=== PATIENT | male | born 1950 | race African-American/Black ===

== ENCOUNTER 2016-07-05 13:37 | Inpatient (IN) | payer MEDICARE, OTHER ==
[2016-07-05] VITALS (21 sets, daily range): BP systolic 94–130; BP diastolic 60–80
[~2016-07-05] VITALS: Ht 182.9 cm; Wt 72.6 kg
[2016-07-05] MEDS ORDERED: IV NS 0.9% 500 ML IV ONE (13:46)
[2016-07-05] MEDS ORDERED: LORAZEPAM INJ 2 MG/ML VIAL ONE (13:46)
[2016-07-05] MEDS ORDERED: IV SET PRIMARY 1 EA INFUS.SET MC ONE ×2 (13:46→14:01)
[2016-07-05] MEDS ORDERED: IV NS 0.9% 500 ML BAG IV ONE (14:00)
[2016-07-05] MEDS ORDERED: LORAZEPAM INJ 2 MG/ML VIAL IV ONE (14:00)
[2016-07-05] MEDS ORDERED: IV NS 0.9% 2,000 ML ONE (14:01)
[2016-07-05] MEDS ORDERED: SODIUM BICARBONATE SYR 50 MEQ/50 ML DISP.SYRIN ONE (14:09)
[2016-07-05 14:11] LABS: BASOPHILS # (AUTO) 0.7 /CMM (0.0-0.2); BASOPHILS % (AUTO) 6.1 % (0.0-2.0); DIFF TOTAL % 100 %; EOSINOPHILS % (AUTO) 0.4 % (0.0-6.0); HEMATOCRIT 47 % (39-51); HEMOGLOBIN 15.1 g/dL (13.5-17.5); LYMPHOCYTES # (AUTO) 1.4 /CMM (0.8-4.8); LYMPHOCYTES % (AUTO) 13.3 % (20.0-44.0); MEAN CORPUSCULAR HEMOGLOBIN 30 PG (26.0-33.0); MEAN CORPUSCULAR HGB CONC 32 g/dl (31.0-36.0); MEAN CORPUSCULAR VOLUME 94 fL (80-96); MONOCYTES # (AUTO) 0.5 /CMM (0.1-1.30); MONOCYTES % (AUTO) 5.1 % (2.0-12.0); NEUTROPHILS # (AUTO) 8.1 /CMM (1.8-8.9); NEUTROPHILS % (AUTO) 75.1 % (43.0-81.0); PLATELET COUNT (AUTO) 554 /CMM (150-450); RED BLOOD CELL COUNT(AUTO) 4.99 MIL/uL (4.5-6.0); WHITE BLOOD COUNT (AUTO) 10.7 K/uL (4.3-11.0)
[2016-07-05 14:16] LABS: ANION GAP 27 (5-14); CALCIUM, SERUM 10.3 mg/dL (8.5-10.1); CARBON DIOXIDE 18 mmol/L (21-32); CHLORIDE 101 mmol/L (98-107); CREATININE 2.3 mg/dL (0.6-1.3); GFR 35 mL/min (>60); GLUCOSE 185 mg/dL (74-106); POTASSIUM 5.2 mmol/L (3.5-5.1); SODIUM SERUM 141 mmol/L (136-145); UREA NITROGEN, BLOOD 14 mg/dL (7-18)
[2016-07-05 14:19] LABS: INR 1.01 (0.87-1.13); PROTHROMBIN TIME 10.6 SECS (9.5-12.7)
[2016-07-05 14:24] LABS: TROPONIN I < 0.017 ng/mL (0.00-0.056)
[2016-07-05] MEDS ORDERED: ROCURONIUM BROMIDE 50 MG/5 ML IV ONE (14:30)
[2016-07-05] MEDS ORDERED: ETOMIDATE 2 MG/ML VIAL IV ONE ×2 (14:30→16:00)
[2016-07-05] MEDS ORDERED: SODIUM BICARBONATE 5 MEQ/10 ML DISP.SYRIN IV ONE (14:30)
[2016-07-05 14:39] LABS: THYROID STIMULATING HORMONE 2.443 uIU/mL (0.358-3.74)
[2016-07-05 14:39] LABS: CREATINE KINASE, TOTAL 159 U/L (39-308)
[2016-07-05 14:59] LABS: ALBUMIN 4.2 g/dL (3.4-5.0); BILIRUBIN,DIRECT 0.1 mg/dL (0.0-0.2); BILIRUBIN,TOTAL 0.5 mg/dL (0.2-1.0); INDIRECT BILIRUBIN 0.4 mg/dL (0.0-1.1)
[2016-07-05] MEDS ORDERED: IV NS 0.9% 1,000 ML BAG IV ONE (15:00)
[2016-07-05] MEDS ORDERED: DANTROLENE SODIUM IV PRN ×2 (15:00→16:00)
[2016-07-05] MEDS ORDERED: WATER FOR IRRIGATION STERILE IV PRN ×2 (15:00→16:00)
[2016-07-05] MEDS ORDERED: IV SET PRIMARY PUMP SET 1 EA INFUS.SET MC ONE ×4 (15:15→20:59)
[2016-07-05] MEDS ORDERED: PROPOFOL 100 ML IV ONE (15:15)
[2016-07-05 15:30] LABS: CANNABINOID, URINE NEGATIVE (NEGATIVE); PHENCYCLIDINE SCREEN,URINE NEGATIVE (NEGATIVE)
[2016-07-05] MEDS ORDERED: PIPERACILLIN /TAZOBACTAM 3.375 G in IV D5W 50 ML IV SCH ×2 (15:30→16:00)
[2016-07-05] MEDS ORDERED: IV NS 0.9% 1,000 ML IV PRN (15:30)
[2016-07-05] MEDS ORDERED: VANCOMYCIN 1 GM in IV D5W 250 ML IV ONE ×2 (15:30→16:00)
[2016-07-05] MEDS ORDERED: ONDANSETRON HCL/PF 4 MG/2 ML VIAL IVP PRN (15:30)
[2016-07-05] MEDS ORDERED: MAG HYDROX/AL HYDROX/SIMETH 30 ML UDC PO PRN (15:30)
[2016-07-05] MEDS ORDERED: MAGNESIUM HYDROXIDE 30 ML UDC PO PRN (15:30)
[2016-07-05] MEDS ORDERED: Z GUARD REMEDY 2 OZ OINT TP PRN (15:30)
[2016-07-05] MEDS ORDERED: ZOLPIDEM TARTRATE 5 MG TABLET PO PRN (15:30)
[2016-07-05] MEDS ORDERED: PIPERACILLIN /TAZOBACTAM 3.375 G in IV D5W 50 ML IV ONE (15:30)
[2016-07-05 15:31] LABS: LACTIC ACID 16.8 mmol/L (0.4-2.0)
[2016-07-05 15:32] LABS: *LACTIC ACID REFLEX FLAG YES
[2016-07-05 16:01] LABS: ABG BASE EXCESS -0.4 mmol/L; ABG HCO3 23.6 mmol/L; ABG PCO2 36.4 mmHg (35.0-45.0); ABG PH 7.429 (7.350-7.450); ABG PO2 99.1 mmHg (75.0-100.0); ABG TOTAL HEMOGLOBIN 12.8 G/dL (13.5-18.0); AaDO2 577.5 mmHg; O2Hb 96.1 % (94.0-97.0)
[2016-07-05 16:05] LABS: KETONES,URINE NEGATIVE (NEGATIVE); LEUKOCYTE ESTERASE ,URINE NEGATIVE (NEGATIVE); PH,URINE 7.5 (5.0-8.0)
[2016-07-05 16:06] LABS: ADD UA MICROSCOPIC YES
[2016-07-05] MEDS ORDERED: LORAZEPAM INJ 2 MG/ML VIAL IVP PRN (16:30)
[2016-07-05 16:44] LABS: ADD URINE CULTURE NO; SPERM,URINE Many /HPF (None Seen); WBC,URINE 0-2 /HPF (0-3)
[2016-07-05] MEDS ORDERED: IV NS 0.9% 1,000 ML ONE (17:23)
[2016-07-05 18:32] LABS: CREATININE, URINE 124.2 MG/DL (30.0-125.0)
[2016-07-05] MEDS ORDERED: FEE PK DOSING 1 MIN EA MC ONE (18:36)
[2016-07-05] MEDS: PROPOFOL 100 ML IV PRN ×2 (18:40→23:33)
[2016-07-05] MEDS: Sodium Bicarbonate 100 MEQ in IV D5 / 0.2% NACL 1,000 ML IV PRN (18:40)
[2016-07-05 20:13] LABS: CSF GLUCOSE 87 mg/dL (40-70); CSF PROTEIN 43.7 mg/dL (15-45)
[2016-07-05] MEDS: WATER FOR IRRIGATION STERILE IV SCH (20:58)
[2016-07-05] MEDS: DANTROLENE SODIUM IV SCH (20:58)
[2016-07-05 20:59] LABS: CSF APPEARANCE CLEAR (CLEAR); CSF COLOR XANTHOCHROMIC (COLORLESS); CSF LYMPHOCYTES 2 % (60-80); CSF MONOCYTES 0 % (30-50); CSF NEUTROPHILS 98 % (2-6); CSF WHITE BLOOD CELL COUNT 4 /cumm (0-5); CSF WHITE BLOOD CELL COUNT 6 /cumm (0-5)
[2016-07-05 21:00] LABS: CSF EOSINOPHILS 0 %
[2016-07-05] MEDS ORDERED: WATER FOR IRRIGATION STERILE IV SCH (21:00)
[2016-07-05] MEDS ORDERED: DANTROLENE SODIUM IV SCH (21:00)
[2016-07-05] MEDS: RIFAXIMIN 550 MG TABLET PO SCH (21:16)
[2016-07-05] MEDS: LACTULOSE 10 G/15 ML UDC (PYXIS) PO SCH (21:16)
[2016-07-05] MEDS: PIPERACILLIN /TAZOBACTAM 2.25 G in IV D5W 50 ML IV SCH (23:33)
[2016-07-05] MEDS ORDERED: SECONDARY IV SET 1 EA INFUS.SET MC ONE (23:33)
[2016-07-06] VITALS (50 sets, daily range): BP systolic 99–154; BP diastolic 52–95
[2016-07-06] MEDS: LACTULOSE 10 G/15 ML UDC (PYXIS) PO SCH ×3 (01:06→08:02)
[2016-07-06] MEDS: Sodium Bicarbonate 100 MEQ in IV D5 / 0.2% NACL 1,000 ML IV PRN (01:59)
[2016-07-06] MEDS: WATER FOR IRRIGATION STERILE IV SCH ×4 (02:00→20:04)
[2016-07-06] MEDS: DANTROLENE SODIUM IV SCH ×4 (02:00→20:04)
[2016-07-06] MEDS: PROPOFOL 100 ML IV PRN ×5 (04:32→22:28)
[2016-07-06] MEDS ORDERED: IV SET PRIMARY PUMP SET 1 EA INFUS.SET MC ONE ×4 (04:34→21:15)
[2016-07-06] MEDS: PIPERACILLIN /TAZOBACTAM 2.25 G in IV D5W 50 ML IV SCH ×4 (05:07→23:11)
[2016-07-06 05:12] LABS: BASOPHILS % (AUTO) 0.3 % (0.0-2.0); DIFF TOTAL % 100 %; EOSINOPHILS % (AUTO) 0.3 % (0.0-6.0); HEMATOCRIT 38 % (39-51); HEMOGLOBIN 12.8 g/dL (13.5-17.5); LYMPHOCYTES # (AUTO) 0.6 /CMM (0.8-4.8); LYMPHOCYTES % (AUTO) 8.2 % (20.0-44.0); MEAN CORPUSCULAR HEMOGLOBIN 31 PG (26.0-33.0); MEAN CORPUSCULAR HGB CONC 34 g/dl (31.0-36.0); MEAN CORPUSCULAR VOLUME 91 fL (80-96); MONOCYTES # (AUTO) 0.6 /CMM (0.1-1.30); MONOCYTES % (AUTO) 8.5 % (2.0-12.0); NEUTROPHILS # (AUTO) 5.7 /CMM (1.8-8.9); NEUTROPHILS % (AUTO) 82.7 % (43.0-81.0); PLATELET COUNT (AUTO) 350 /CMM (150-450); RED BLOOD CELL COUNT(AUTO) 4.16 MIL/uL (4.5-6.0); WHITE BLOOD COUNT (AUTO) 6.9 K/uL (4.3-11.0)
[2016-07-06 05:35] LABS: ALANINE AMINOTRANSFERASE 57 U/L (12-78); ALBUMIN 3.1 g/dL (3.4-5.0); ANION GAP 9 (5-14); ASPARTATE AMINOTRANSFERASE 203 U/L (15-37); BILIRUBIN,DIRECT 0.1 mg/dL (0.0-0.2); BILIRUBIN,TOTAL 0.4 mg/dL (0.2-1.0); CARBON DIOXIDE 33 mmol/L (21-32); CHLORIDE 101 mmol/L (98-107); CREATININE 1.5 mg/dL (0.6-1.3); GFR 57 mL/min (>60); GLUCOSE 106 mg/dL (74-106); INDIRECT BILIRUBIN 0.3 mg/dL (0.0-1.1); PHOSPHORUS 2.7 mg/dL (2.5-4.9); POTASSIUM 3.3 mmol/L (3.5-5.1); SODIUM SERUM 139 mmol/L (136-145); TOTAL PROTEIN, SERUM 6.1 g/dL (6.4-8.2); UREA NITROGEN, BLOOD 9 mg/dL (7-18)
[2016-07-06 05:36] LABS: INR 0.99 (0.87-1.13); PROTHROMBIN TIME 10.7 SECS (9.5-12.7)
[2016-07-06 05:42] LABS: CHOLESTEROL 180 mg/dL (<200); HDL CHOLESTEROL 58 mg/dL (40-60); LDL 89 mg/dL (0-99); TRIGLYCERIDES 227 mg/dL (30-150)
[2016-07-06] MEDS ORDERED: PANTOPRAZOLE 40 MG TABLET.DR PO SCH (07:30)
[2016-07-06] MEDS: RIFAXIMIN 550 MG TABLET PO SCH (08:02)
[2016-07-06] MEDS: POTASSIUM CL. PREMIX PERIPHER. 50 ML IV SCH ×4 (08:44→12:47)
[2016-07-06] MEDS: PANTOPRAZOLE 40 MG/PACK PACK GT SCH (08:45)
[2016-07-06 08:46] LABS: ABG BASE EXCESS 6.8 mmol/L; ABG HCO3 29.7 mmol/L; ABG NOTIFIED BY AS RRT.; ABG PH 7.534 (7.350-7.450); ABG PO2 330.4 mmHg (75.0-100.0); ABG TOTAL HEMOGLOBIN 12.4 G/dL (13.5-18.0); AaDO2 202.2 mmHg; O2Hb 97.7 % (94.0-97.0)
[2016-07-06] MEDS: IV D5/ 0.9% NACL 1,000 ML IV PRN ×2 (10:27→22:29)
[2016-07-06] MEDS: Magnesium 1GM/D5W 100ML PREMIX 100 ML IV SCH ×3 (10:27→12:46)
[2016-07-06] MEDS ORDERED: WATER FOR IRRIGATION STERILE IV SCH (14:00)
[2016-07-06] MEDS ORDERED: DANTROLENE SODIUM IV SCH (14:00)
[2016-07-06] MEDS: ACETAMINOPHEN 325 MG TABLET PO PRN (17:22)
[2016-07-06] MEDS: LACTOBACILLUS RHAMNOSUS GG 1 EACH CAP.SPRINK PO SCH (17:22)
[2016-07-06] MEDS ORDERED: VANCOMYCIN 1 GM in IV D5W 250 ML IV SCH (18:00)
[2016-07-07] VITALS (39 sets, daily range): BP systolic 95–178; BP diastolic 43–116
[2016-07-07] MEDS: WATER FOR IRRIGATION STERILE IV SCH (02:00)
[2016-07-07] MEDS: PROPOFOL 100 ML IV PRN ×2 (02:00→06:02)
[2016-07-07] MEDS: DANTROLENE SODIUM IV SCH (02:00)
[2016-07-07 04:34] LABS: BASOPHILS % (AUTO) 0.1 % (0.0-2.0); DIFF TOTAL % 100 %; EOSINOPHILS % (AUTO) 0.3 % (0.0-6.0); HEMATOCRIT 33 % (39-51); HEMOGLOBIN 11.2 g/dL (13.5-17.5); LYMPHOCYTES # (AUTO) 0.6 /CMM (0.8-4.8); LYMPHOCYTES % (AUTO) 7.8 % (20.0-44.0); MEAN CORPUSCULAR HEMOGLOBIN 31 PG (26.0-33.0); MEAN CORPUSCULAR HGB CONC 33 g/dl (31.0-36.0); MEAN CORPUSCULAR VOLUME 92 fL (80-96); MONOCYTES # (AUTO) 0.4 /CMM (0.1-1.30); MONOCYTES % (AUTO) 5.6 % (2.0-12.0); NEUTROPHILS # (AUTO) 6.3 /CMM (1.8-8.9); NEUTROPHILS % (AUTO) 86.2 % (43.0-81.0); PLATELET COUNT (AUTO) 299 /CMM (150-450); RED BLOOD CELL COUNT(AUTO) 3.64 MIL/uL (4.5-6.0); WHITE BLOOD COUNT (AUTO) 7.3 K/uL (4.3-11.0)
[2016-07-07 05:12] LABS: ALBUMIN 2.4 g/dL (3.4-5.0); BILIRUBIN,DIRECT 0.1 mg/dL (0.0-0.2); BILIRUBIN,TOTAL 0.6 mg/dL (0.2-1.0); CALCIUM, SERUM 7.3 mg/dL (8.5-10.1); INDIRECT BILIRUBIN 0.5 mg/dL (0.0-1.1); PHOSPHORUS 2.5 mg/dL (2.5-4.9); POTASSIUM 2.9 mmol/L (3.5-5.1); TOTAL PROTEIN, SERUM 5.4 g/dL (6.4-8.2)
[2016-07-07] MEDS: PIPERACILLIN /TAZOBACTAM 2.25 G in IV D5W 50 ML IV SCH ×3 (06:02→17:53)
[2016-07-07] MEDS ORDERED: POTASSIUM CHLORIDE 20 MEQ TAB.PRT.SR PO SCH (08:00)
[2016-07-07] MEDS: LACTOBACILLUS RHAMNOSUS GG 1 EACH CAP.SPRINK PO SCH ×2 (08:29→17:53)
[2016-07-07] MEDS: PANTOPRAZOLE 40 MG/PACK PACK GT SCH (08:29)
[2016-07-07] MEDS: POTASSIUM CHLORIDE 20 MEQ POWDER PACKET GT SCH ×5 (08:30→11:08)
[2016-07-07] MEDS: IV D5/ 0.9% NACL 1,000 ML IV PRN (10:02)
[2016-07-07 10:11] LABS: ABG BASE EXCESS 0.8 mmol/L; ABG HCO3 24.4 mmol/L; ABG PCO2 35.7 mmHg (35.0-45.0); ABG PH 7.453 (7.350-7.450); ABG PO2 72.9 mmHg (75.0-100.0); ABG TOTAL HEMOGLOBIN 12.6 G/dL (13.5-18.0); AaDO2 99.1 mmHg; O2Hb 93.4 % (94.0-97.0)
[2016-07-07] MEDS: IV D5/ 0.9% NACL 1,000 ML IV SCH ×2 (10:25→23:09)
[2016-07-07] MEDS ORDERED: POTASSIUM CL. PREMIX PERIPHER. 50 ML IV SCH (10:30)
[2016-07-07] MEDS ORDERED: POTASSIUM CHLORIDE 20 MEQ POWDER PACKET GT SCH (11:15)
[2016-07-07] MEDS ORDERED: WATER FOR IRRIGATION STERILE IV ONE (16:00)
[2016-07-07] MEDS ORDERED: DANTROLENE SODIUM IV ONE (16:00)
[2016-07-07] MEDS: VANCOMYCIN 1 GM in IV D5W 250 ML IV SCH (18:15)
[2016-07-07] MEDS ORDERED: LEVOFLOXACIN (500MG) 500 MG TABLET PO SCH (18:30)
[2016-07-07] MEDS: HYDROCODONE/APAP 5/325MG 1 EACH TABLET PO PRN (18:54)
[2016-07-08] VITALS (48 sets, daily range): BP systolic 88–197; BP diastolic 57–125
[2016-07-08] MEDS ORDERED: ADENOSINE 6 MG/2 ML VIAL ONE ×3 (02:45→06:00)
[2016-07-08] MEDS ORDERED: ADENOSINE 6 MG/2 ML VIAL IVP ONE ×4 (03:00→06:30)
[2016-07-08 04:53] LABS: BASOPHILS % (AUTO) 0.2 % (0.0-2.0); DIFF TOTAL % 100 %; EOSINOPHILS % (AUTO) 0.3 % (0.0-6.0); HEMATOCRIT 38 % (39-51); HEMOGLOBIN 12.4 g/dL (13.5-17.5); LYMPHOCYTES # (AUTO) 0.7 /CMM (0.8-4.8); LYMPHOCYTES % (AUTO) 6.3 % (20.0-44.0); MEAN CORPUSCULAR HEMOGLOBIN 31 PG (26.0-33.0); MEAN CORPUSCULAR HGB CONC 33 g/dl (31.0-36.0); MEAN CORPUSCULAR VOLUME 92 fL (80-96); MONOCYTES # (AUTO) 0.8 /CMM (0.1-1.30); MONOCYTES % (AUTO) 7.6 % (2.0-12.0); NEUTROPHILS # (AUTO) 8.9 /CMM (1.8-8.9); NEUTROPHILS % (AUTO) 85.6 % (43.0-81.0); PLATELET COUNT (AUTO) 341 /CMM (150-450); RED BLOOD CELL COUNT(AUTO) 4.07 MIL/uL (4.5-6.0); WHITE BLOOD COUNT (AUTO) 10.4 K/uL (4.3-11.0)
[2016-07-08 05:10] LABS: TROPONIN I 0.121 ng/mL (0.00-0.056)
[2016-07-08 05:14] LABS: ALBUMIN 2.6 g/dL (3.4-5.0); BILIRUBIN,TOTAL 0.8 mg/dL (0.2-1.0); CALCIUM, SERUM 8.3 mg/dL (8.5-10.1); CREATININE 0.9 mg/dL (0.6-1.3); PHOSPHORUS 1.8 mg/dL (2.5-4.9); POTASSIUM 3.9 mmol/L (3.5-5.1); TOTAL PROTEIN, SERUM 6.2 g/dL (6.4-8.2)
[2016-07-08] MEDS: VANCOMYCIN 1 GM in IV D5W 250 ML IV SCH ×2 (05:49→18:05)
[2016-07-08] MEDS ORDERED: AMIODARONE 150 MG/3 ML VIAL IV ONE (06:26)
[2016-07-08] MEDS ORDERED: IV D5W 100 ML IV ONE (06:27)
[2016-07-08] MEDS ORDERED: IV SET PRIMARY PUMP SET 1 EA INFUS.SET MC ONE ×4 (06:28→18:48)
[2016-07-08] MEDS ORDERED: POTASSIUM PHOSPHATE MM 15 MMOL in IV D5W 250 ML IV SCH (06:30)
[2016-07-08] MEDS ORDERED: FIBERSOURCE HN 1,000 ML BOTTLE GT PRN (06:30)
[2016-07-08] MEDS ORDERED: AMIODARONE 900 MG in IV D5W 500 ML IV PRN (06:30)
[2016-07-08] MEDS ORDERED: AMIODARONE 150 MG in IV D5W 100 ML IV ONE (06:30)
[2016-07-08] MEDS: LACTOBACILLUS RHAMNOSUS GG 1 EACH CAP.SPRINK PO SCH (07:58)
[2016-07-08] MEDS: PANTOPRAZOLE 40 MG/PACK PACK GT SCH (07:59)
[2016-07-08] MEDS ORDERED: AMIODARONE 900 MG in IV D5W 482 ML IV PRN (08:30)
[2016-07-08 08:41] LABS: ABG BASE EXCESS 0.1 mmol/L; ABG HCO3 24.1 mmol/L; ABG PCO2 36.8 mmHg (35.0-45.0); ABG PH 7.434 (7.350-7.450); ABG TOTAL HEMOGLOBIN 12.8 G/dL (13.5-18.0); AaDO2 56.7 mmHg; O2Hb 96.3 % (94.0-97.0)
[2016-07-08] MEDS ORDERED: NEUTRA PHOS 1 POWD.PACKET PO ONE (09:00)
[2016-07-08] MEDS: ACETAMINOPHEN 325 MG TABLET PO PRN ×2 (10:21→18:32)
[2016-07-08] MEDS: hydrALAZINE HCL IV 20 MG VIAL IV PRN (11:02)
[2016-07-08] MEDS ORDERED: IV NS 0.9% 250 ML IV ONE (15:24)
[2016-07-08] MEDS ORDERED: SECONDARY IV SET 1 EA INFUS.SET MC ONE (17:02)
[2016-07-08] MEDS: LEVOFLOXACIN 500 MG /D5W 100ML 500 MG in PREMIX 1 EA IV SCH (18:51)
[2016-07-09] VITALS (38 sets, daily range): BP systolic 127–172; BP diastolic 62–93
[2016-07-09 05:15] LABS: BASOPHILS % (AUTO) 0.2 % (0.0-2.0); DIFF TOTAL % 100 %; EOSINOPHILS # (AUTO) 0.1 /CMM (0.0-0.7); EOSINOPHILS % (AUTO) 0.8 % (0.0-6.0); HEMATOCRIT 38 % (39-51); HEMOGLOBIN 12.4 g/dL (13.5-17.5); LYMPHOCYTES # (AUTO) 0.6 /CMM (0.8-4.8); LYMPHOCYTES % (AUTO) 6.3 % (20.0-44.0); MEAN CORPUSCULAR HEMOGLOBIN 30 PG (26.0-33.0); MEAN CORPUSCULAR HGB CONC 33 g/dl (31.0-36.0); MEAN CORPUSCULAR VOLUME 93 fL (80-96); MONOCYTES # (AUTO) 0.5 /CMM (0.1-1.30); MONOCYTES % (AUTO) 4.9 % (2.0-12.0); NEUTROPHILS # (AUTO) 8.5 /CMM (1.8-8.9); NEUTROPHILS % (AUTO) 87.8 % (43.0-81.0); PLATELET COUNT (AUTO) 352 /CMM (150-450); RED BLOOD CELL COUNT(AUTO) 4.07 MIL/uL (4.5-6.0); WHITE BLOOD COUNT (AUTO) 9.6 K/uL (4.3-11.0)
[2016-07-09 05:29] LABS: ALBUMIN 2.4 g/dL (3.4-5.0); BILIRUBIN,TOTAL 0.8 mg/dL (0.2-1.0); CALCIUM, SERUM 8.5 mg/dL (8.5-10.1); CREATININE 0.9 mg/dL (0.6-1.3); PHOSPHORUS 2.5 mg/dL (2.5-4.9); TOTAL PROTEIN, SERUM 6.2 g/dL (6.4-8.2)
[2016-07-09 05:41] LABS: BAND % (MANUAL) 7 % (0.0-5.0); LYMPHOCYTES % (MANUAL) 11 % (16-48)
[2016-07-09 05:43] LABS: ANISOCYTOSIS 1+; PLATELET ESTIMATE ADEQUATE
[2016-07-09] MEDS: VANCOMYCIN 1 GM in IV D5W 250 ML IV SCH (06:01)
[2016-07-09] MEDS ORDERED: IV SET PRIMARY PUMP SET 1 EA INFUS.SET MC ONE (08:16)
[2016-07-09] MEDS: POTASSIUM CL. PREMIX PERIPHER. 50 ML IV SCH ×4 (08:21→11:41)
[2016-07-09] MEDS: PANTOPRAZOLE 40 MG/PACK PACK GT SCH (08:59)
[2016-07-09] MEDS: hydrALAZINE HCL IV 20 MG VIAL IV PRN (09:12)
[2016-07-09] MEDS ORDERED: POTASSIUM CL. PREMIX PERIPHER. 50 ML IV SCH (10:00)
[2016-07-09] MEDS ORDERED: POTASSIUM CHLORIDE 20 MEQ TAB.PRT.SR PO ONE (10:00)
[2016-07-09] MEDS: Potassium Chloride 20 MEQ in IV D5/0.45 NACL 1,000 ML IV PRN (11:39)
[2016-07-09] MEDS ORDERED: ACETAMINOPHEN 650 MG/SUPP.RECT RC PRN (12:00)
[2016-07-09] MEDS ORDERED: SECONDARY IV SET 1 EA INFUS.SET MC ONE (13:03)
[2016-07-09] MEDS ORDERED: DIATR MEGLU/DIATRIZOATE SODIUM 30 ML BOTTLE (GASTROGRAPHIN) ONE (13:39)
[2016-07-09] MEDS ORDERED: IV NS 0.9% 250 ML IV ONE (15:29)
[2016-07-09] MEDS ORDERED: CT SWABBABLE VALVE TRANS SET 1 EA INFUS.SET MC ONE (15:29)
[2016-07-09] MEDS ORDERED: IOHEXOL-300 100 ML VIAL IV ONE (15:29)
[2016-07-09] MEDS: LEVOFLOXACIN 500 MG /D5W 100ML 500 MG in PREMIX 1 EA IV SCH (17:21)
[2016-07-09] MEDS: NA PHOS,M-B/NA PHOS,DI-BA 1 EA ENEMA RC PRN (17:46)
[2016-07-09] MEDS ORDERED: VANCOMYCIN 1.25 GM in IV D5W 500 ML IV SCH (18:00)
[2016-07-10] VITALS (31 sets, daily range): BP systolic 128–177; BP diastolic 60–97
[2016-07-10] MEDS ORDERED: IV PREMIX D5 1/2NS + KCL 1,000 ML IV ONE (00:32)
[2016-07-10] MEDS: Potassium Chloride 20 MEQ in IV D5/0.45 NACL 1,000 ML IV PRN ×2 (00:40→14:24)
[2016-07-10 05:03] LABS: BASOPHILS % (AUTO) 0.5 % (0.0-2.0); DIFF TOTAL % 100 %; EOSINOPHILS # (AUTO) 0.1 /CMM (0.0-0.7); EOSINOPHILS % (AUTO) 0.7 % (0.0-6.0); HEMATOCRIT 37 % (39-51); HEMOGLOBIN 12.1 g/dL (13.5-17.5); LYMPHOCYTES # (AUTO) 0.7 /CMM (0.8-4.8); MEAN CORPUSCULAR HEMOGLOBIN 30 PG (26.0-33.0); MEAN CORPUSCULAR HGB CONC 33 g/dl (31.0-36.0); MEAN CORPUSCULAR VOLUME 92 fL (80-96); MONOCYTES # (AUTO) 0.6 /CMM (0.1-1.30); MONOCYTES % (AUTO) 6.4 % (2.0-12.0); NEUTROPHILS # (AUTO) 8.5 /CMM (1.8-8.9); NEUTROPHILS % (AUTO) 85.4 % (43.0-81.0); PLATELET COUNT (AUTO) 382 /CMM (150-450); RED BLOOD CELL COUNT(AUTO) 4.01 MIL/uL (4.5-6.0); WHITE BLOOD COUNT (AUTO) 9.9 K/uL (4.3-11.0)
[2016-07-10] MEDS: VANCOMYCIN 1.25 GM in IV D5W 500 ML IV SCH ×2 (05:07→18:09)
[2016-07-10 05:31] LABS: ALBUMIN 2.2 g/dL (3.4-5.0); BILIRUBIN,TOTAL 0.4 mg/dL (0.2-1.0); CALCIUM, SERUM 8.1 mg/dL (8.5-10.1); CREATININE 0.8 mg/dL (0.6-1.3); PHOSPHORUS 2.5 mg/dL (2.5-4.9); TOTAL PROTEIN, SERUM 5.8 g/dL (6.4-8.2)
[2016-07-10] MEDS ORDERED: VANCOMYCIN 1.25 GM in IV D5W 500 ML IV SCH (06:00)
[2016-07-10] MEDS: PANTOPRAZOLE 40 MG VIAL IV SCH (08:10)
[2016-07-10] MEDS: NA PHOS,M-B/NA PHOS,DI-BA 1 EA ENEMA RC PRN (08:10)
[2016-07-10] MEDS: POTASSIUM CL. PREMIX PERIPHER. 50 ML IV SCH ×10 (10:06→20:47)
[2016-07-10] MEDS ORDERED: SECONDARY IV SET 1 EA INFUS.SET MC ONE (15:03)
[2016-07-10] MEDS: hydrALAZINE HCL IV 20 MG VIAL IV PRN ×2 (16:01→22:35)
[2016-07-10] MEDS: LEVOFLOXACIN 500 MG /D5W 100ML 500 MG in PREMIX 1 EA IV SCH (17:22)
[2016-07-10] MEDS: METOPROLOL TARTRATE INJ 5 MG/5 ML AMPUL IVP SCH (18:09)
[2016-07-10] MEDS: HYDROCODONE/APAP 5/325MG 1 EACH TABLET PO PRN (23:47)
[2016-07-11] VITALS (22 sets, daily range): BP systolic 100–200; BP diastolic 54–100
[2016-07-11] MEDS: Potassium Chloride 20 MEQ in IV D5/0.45 NACL 1,000 ML IV PRN ×2 (02:05→16:12)
[2016-07-11] MEDS: VANCOMYCIN 1.25 GM in IV D5W 500 ML IV SCH (05:00)
[2016-07-11] MEDS: hydrALAZINE HCL IV 20 MG VIAL IV PRN (05:06)
[2016-07-11 05:08] LABS: CALCIUM, SERUM 8.4 mg/dL (8.5-10.1); CREATININE 0.7 mg/dL (0.6-1.3); PHOSPHORUS 2.8 mg/dL (2.5-4.9); POTASSIUM 3.2 mmol/L (3.5-5.1)
[2016-07-11] MEDS: PANTOPRAZOLE 40 MG VIAL IV SCH (09:10)
[2016-07-11] MEDS: METOPROLOL TARTRATE INJ 5 MG/5 ML AMPUL IVP SCH (09:10)
[2016-07-11] MEDS ORDERED: IV SET PRIMARY PUMP SET 1 EA INFUS.SET MC ONE (09:34)
[2016-07-11] MEDS: POTASSIUM CL. PREMIX PERIPHER. 50 ML IV SCH ×6 (09:38→15:01)
[2016-07-11] MEDS: VANCOMYCIN 1 GM in IV D5W 250 ML IV SCH ×2 (13:01→21:06)
[2016-07-11] MEDS ORDERED: PEG 3350/NA SULF,BICARB,CL/KCL 4,000 ML BOTTLE PO ONE ×2 (13:30→20:00)
[2016-07-11] MEDS: LEVOFLOXACIN 500 MG /D5W 100ML 500 MG in PREMIX 1 EA IV SCH (17:36)
[2016-07-11] MEDS: METOPROLOL TARTRATE 25 MG TABLET PO SCH (21:05)
[2016-07-11] MEDS: MIRTAZAPINE 15 MG TABLET PO SCH (21:05)
[2016-07-11] MEDS ORDERED: SECONDARY IV SET 1 EA INFUS.SET MC ONE (21:09)
[2016-07-11] MEDS: ZOLPIDEM TARTRATE 10 MG TABLET PO PRN (23:29)
[2016-07-12] VITALS (9 sets, daily range): BP systolic 110–175; BP diastolic 42–79
[2016-07-12 05:39] LABS: BASOPHILS % (AUTO) 0.4 % (0.0-2.0); DIFF TOTAL % 100 %; EOSINOPHILS # (AUTO) 0.1 /CMM (0.0-0.7); EOSINOPHILS % (AUTO) 1.2 % (0.0-6.0); HEMATOCRIT 35 % (39-51); HEMOGLOBIN 11.4 g/dL (13.5-17.5); LYMPHOCYTES # (AUTO) 0.8 /CMM (0.8-4.8); LYMPHOCYTES % (AUTO) 8.2 % (20.0-44.0); MEAN CORPUSCULAR HEMOGLOBIN 30 PG (26.0-33.0); MEAN CORPUSCULAR HGB CONC 33 g/dl (31.0-36.0); MEAN CORPUSCULAR VOLUME 93 fL (80-96); MONOCYTES % (AUTO) 10.1 % (2.0-12.0); NEUTROPHILS # (AUTO) 7.6 /CMM (1.8-8.9); NEUTROPHILS % (AUTO) 80.1 % (43.0-81.0); PLATELET COUNT (AUTO) 388 /CMM (150-450); RED BLOOD CELL COUNT(AUTO) 3.76 MIL/uL (4.5-6.0); WHITE BLOOD COUNT (AUTO) 9.5 K/uL (4.3-11.0)
[2016-07-12 05:50] LABS: CALCIUM, SERUM 8.6 mg/dL (8.5-10.1); CREATININE 0.8 mg/dL (0.6-1.3); PHOSPHORUS 2.1 mg/dL (2.5-4.9); POTASSIUM 3.3 mmol/L (3.5-5.1)
[2016-07-12] MEDS: VANCOMYCIN 1 GM in IV D5W 250 ML IV SCH ×2 (06:10→13:13)
[2016-07-12] MEDS: METOPROLOL TARTRATE 25 MG TABLET PO SCH ×2 (09:32→21:21)
[2016-07-12] MEDS: PANTOPRAZOLE 40 MG VIAL IV SCH (09:32)
[2016-07-12] MEDS ORDERED: SECONDARY IV SET 1 EA INFUS.SET MC ONE (11:41)
[2016-07-12] MEDS: Potassium Chloride 20 MEQ in IV D5/0.45 NACL 1,000 ML IV PRN (11:45)
[2016-07-12] MEDS: Magnesium 1GM/D5W 100ML PREMIX 100 ML IV SCH ×2 (13:13→14:37)
[2016-07-12] MEDS: POTASSIUM CL. PREMIX PERIPHER. 50 ML IV SCH ×3 (16:32→18:35)
[2016-07-12] MEDS ORDERED: IV SET PRIMARY PUMP SET 1 EA INFUS.SET MC ONE (16:43)
[2016-07-12] MEDS ORDERED: NEUTRA PHOS 1 POWD.PACKET PO ONE (17:00)
[2016-07-12] MEDS: LEVOFLOXACIN 500 MG /D5W 100ML 500 MG in PREMIX 1 EA IV SCH (17:17)
[2016-07-12] MEDS: SULFAMETH/TRIMETH 800/160 MG 1 UDTAB TABLET PO SCH (21:20)
[2016-07-12] MEDS: MIRTAZAPINE 15 MG TABLET PO SCH (21:21)
[2016-07-13] VITALS: BP 133/72
[2016-07-13 04:00] VITALS: BP 142/49
[2016-07-13 06:58] LABS: CALCIUM, SERUM 8.1 mg/dL (8.5-10.1); CREATININE 0.7 mg/dL (0.6-1.3); PHOSPHORUS 3.1 mg/dL (2.5-4.9); POTASSIUM 3.3 mmol/L (3.5-5.1)
[2016-07-13 07:02] LABS: DIFF TOTAL % 100 %; EOSINOPHILS # (AUTO) 0.1 /CMM (0.0-0.7); EOSINOPHILS % (AUTO) 1.3 % (0.0-6.0); HEMATOCRIT 31 % (39-51); HEMOGLOBIN 10.5 g/dL (13.5-17.5); LYMPHOCYTES # (AUTO) 0.7 /CMM (0.8-4.8); MEAN CORPUSCULAR HEMOGLOBIN 31 PG (26.0-33.0); MEAN CORPUSCULAR HGB CONC 34 g/dl (31.0-36.0); MEAN CORPUSCULAR VOLUME 92 fL (80-96); MONOCYTES # (AUTO) 0.6 /CMM (0.1-1.30); MONOCYTES % (AUTO) 8.1 % (2.0-12.0); NEUTROPHILS # (AUTO) 6.5 /CMM (1.8-8.9); NEUTROPHILS % (AUTO) 81.6 % (43.0-81.0); PLATELET COUNT (AUTO) 455 /CMM (150-450); RED BLOOD CELL COUNT(AUTO) 3.42 MIL/uL (4.5-6.0)
[2016-07-13 08:00] VITALS: BP 132/60
[2016-07-13] MEDS: SULFAMETH/TRIMETH 800/160 MG 1 UDTAB TABLET PO SCH ×2 (09:16→21:30)
[2016-07-13] MEDS: PANTOPRAZOLE 40 MG VIAL IV SCH (09:16)
[2016-07-13] MEDS: METOPROLOL TARTRATE 25 MG TABLET PO SCH ×2 (09:17→21:00)
[2016-07-13 12:00] VITALS: BP 126/55
[2016-07-13 16:00] VITALS: BP 129/69
[2016-07-13] MEDS: Potassium Chloride 20 MEQ in IV D5/0.45 NACL 1,000 ML IV PRN (17:52)
[2016-07-13 20:00] VITALS: BP 101/50
[2016-07-13] MEDS: MIRTAZAPINE 15 MG TABLET PO SCH (21:31)
[2016-07-14] VITALS: BP 110/48
[2016-07-14 04:00] VITALS: BP 115/56
[2016-07-14 08:00] VITALS: BP 144/82
[2016-07-14] MEDS: PANTOPRAZOLE 40 MG VIAL IV SCH (08:08)
[2016-07-14] MEDS: SULFAMETH/TRIMETH 800/160 MG 1 UDTAB TABLET PO SCH (08:08)
[2016-07-14] MEDS: METOPROLOL TARTRATE 25 MG TABLET PO SCH ×2 (08:08→20:57)
[2016-07-14 12:00] VITALS: BP 127/73
[2016-07-14 16:00] VITALS: BP 133/63
[2016-07-14 20:00] VITALS: BP 127/55
[2016-07-14] MEDS: MIRTAZAPINE 15 MG TABLET PO SCH (22:50)
[2016-07-15] VITALS: BP 108/56
[2016-07-15] MEDS: ZOLPIDEM TARTRATE 10 MG TABLET PO PRN (01:14)
[2016-07-15 04:00] VITALS: BP 131/53
[2016-07-15 07:49] LABS: BASOPHILS % (AUTO) 0.2 % (0.0-2.0); DIFF TOTAL % 100 %; EOSINOPHILS # (AUTO) 0.1 /CMM (0.0-0.7); EOSINOPHILS % (AUTO) 1.3 % (0.0-6.0); HEMATOCRIT 31 % (39-51); HEMOGLOBIN 10.3 g/dL (13.5-17.5); LYMPHOCYTES % (AUTO) 11.6 % (20.0-44.0); MEAN CORPUSCULAR HEMOGLOBIN 30 PG (26.0-33.0); MEAN CORPUSCULAR HGB CONC 33 g/dl (31.0-36.0); MEAN CORPUSCULAR VOLUME 92 fL (80-96); MONOCYTES # (AUTO) 0.6 /CMM (0.1-1.30); MONOCYTES % (AUTO) 7.2 % (2.0-12.0); NEUTROPHILS # (AUTO) 6.7 /CMM (1.8-8.9); NEUTROPHILS % (AUTO) 79.7 % (43.0-81.0); PLATELET COUNT (AUTO) 512 /CMM (150-450); RED BLOOD CELL COUNT(AUTO) 3.42 MIL/uL (4.5-6.0); WHITE BLOOD COUNT (AUTO) 8.4 K/uL (4.3-11.0)
[2016-07-15 07:58] LABS: CALCIUM, SERUM 8.5 mg/dL (8.5-10.1); CREATININE 0.7 mg/dL (0.6-1.3); POTASSIUM 3.6 mmol/L (3.5-5.1)
[2016-07-15 08:00] VITALS: BP 101/60
[2016-07-15] MEDS: METOPROLOL TARTRATE 25 MG TABLET PO SCH ×2 (09:00→22:20)
[2016-07-15] MEDS: PANTOPRAZOLE 40 MG VIAL IV SCH (09:00)
[2016-07-15 12:00] VITALS: BP 119/51
[2016-07-15 12:17] LABS: *BAC HAEMOP. INFLUENZA B AG Negative (Negative); *BACT BETA STREP (GROUP B) AG Negative (Negative); *BACT NEISSERIA MENING. AG Negative (Negative); *BACT STREP PNEUMONIAE AG Negative (Negative)
[2016-07-15 16:00] VITALS: BP 149/62
[2016-07-15] MEDS: Potassium Chloride 20 MEQ in IV D5/0.45 NACL 1,000 ML IV PRN (19:32)
[2016-07-15 20:00] VITALS: BP 132/54
[2016-07-15] MEDS ORDERED: TERAZOSIN HCL 5 MG CAPSULE PO SCH (22:00)
[2016-07-15] MEDS: MIRTAZAPINE 15 MG TABLET PO SCH (23:22)
[2016-07-16] VITALS: BP 106/48
[2016-07-16] MEDS: ZOLPIDEM TARTRATE 10 MG TABLET PO PRN (00:22)
[2016-07-16 04:00] VITALS: BP 99/35
[2016-07-16 08:00] VITALS: BP 113/48
[2016-07-16] MEDS: METOPROLOL TARTRATE 25 MG TABLET PO SCH (09:00)
[2016-07-16] MEDS: PANTOPRAZOLE 40 MG VIAL IV SCH (09:00)
[2016-07-16 12:00] VITALS: BP_SYST 123; BP_SYST 125; BP_DIAS 53; BP_DIAS 58
[2016-07-18 06:06] LABS: *BAC ORGANISM ID Not indicated. (.)
== END 2016-07-16 14:27 | disposition home or self-care (01) | DRG 208 ==
LOC: ER 13:39 → ICU 16:21 → TELE-TD 07-11 10:50 → TELE1 07-12 15:31
PROVIDERS: ADMIT Student in an Organized Health Care Education/Training Program; ATTEND Student in an Organized Health Care Education/Training Program
PROC: 5A1945Z Respiratory Ventilation, 24-96 Consecutive Hours (ICD-10-PCS; principal; 2016-07-05)
PROC: 0BH17EZ Insertion of Endotracheal Airway into Trachea, Via Natural or Artificial Opening (ICD-10-PCS; 2016-07-05)
PROC: 009U3ZX Drainage of Spinal Canal, Percutaneous Approach, Diagnostic (ICD-10-PCS; 2016-07-05)
PROC: B01BYZZ Fluoroscopy of Spinal Cord using Other Contrast (ICD-10-PCS; 2016-07-05)
PROC: 02HV33Z Insertion of Infusion Device into Superior Vena Cava, Percutaneous Approach (ICD-10-PCS; 2016-07-06)
PROC: B548ZZA Ultrasonography of Superior Vena Cava, Guidance (ICD-10-PCS; 2016-07-06)
PROC: 0DBL8ZZ Excision of Transverse Colon, Via Natural or Artificial Opening Endoscopic (ICD-10-PCS; 2016-07-12)
DX: J96.01 Acute respiratory failure with hypoxia (principal); N17.0 Acute kidney failure with tubular necrosis; I21.4 Non-ST elevation (NSTEMI) myocardial infarction; K72.00 Acute and subacute hepatic failure without coma; J69.0 Pneumonitis due to inhalation of food and vomit; G92 Toxic encephalopathy; M62.82 Rhabdomyolysis; E87.2 Acidosis; I50.30 Unspecified diastolic (congestive) heart failure; F33.1 Major depressive disorder, recurrent, moderate; E72.20 Disorder of urea cycle metabolism, unspecified; L03.114 Cellulitis of left upper limb; I47.1 Supraventricular tachycardia; K56.7 Ileus, unspecified; I13.0 Hypertensive heart and chronic kidney disease with heart failure and stage 1 through stage 4 chronic kidney disease, or unspecified chronic kidney disease; G25.89 Other specified extrapyramidal and movement disorders; E86.0 Dehydration; E87.5 Hyperkalemia; E83.42 Hypomagnesemia; N40.1 Benign prostatic hyperplasia with lower urinary tract symptoms; K64.1 Second degree hemorrhoids; D64.9 Anemia, unspecified; D12.3 Benign neoplasm of transverse colon; F15.10 Other stimulant abuse, uncomplicated; M41.86 Other forms of scoliosis, lumbar region; M47.895 Other spondylosis, thoracolumbar region; R33.9 Retention of urine, unspecified; N18.9 Chronic kidney disease, unspecified; K52.9 Noninfective gastroenteritis and colitis, unspecified
CPT/HCPCS: 31720; 36415; 36600; 62270; 70450-TC; 71010-TC; 74000-TC; 76705-TC; 76770-TC; 80048-TC; 80053-TC; 80061-TC; 80076-TC; 80202-TC; 80305; 81000-TC; 82140-TC; 82550-TC; 82570-TC; 83605-TC; 83615-TC; 83735-TC; 83880; 84100-TC; 84300-TC; 84443-TC; 84484-TC; 85025-TC; 85610-TC; 85730-TC; 87040-TC; 87070-TC; 87081-TC; 87086-TC; 87802; 87899; 88305-TC; 89051-TC; 92611-TC; 93307-TC; 93930-TC; 93971-TC; 94002-TC; 94003-TC; 94640-TC; 94760-TC; 94799-TC; 95819-TC; 97001-TC; 97116-TC; A4216; A4217; A4606; C1751; C9113; G0480; J0153; J0282; J0360; J1956; J2060; J2543; J3370; J3475; J3480; J3490; J7030; J7040; J7042; J7050; J7060; Q9963; Q9967; Z7610